=== PATIENT | female | born 1945 | race Two or more races ===

== ENCOUNTER 2018-02-23 09:48 | Inpatient (IN) | payer MEDICARE, MEDICAID ==
[~2018-02-23] VITALS: Ht 154.9 cm; Wt 91.2 kg
[2018-02-23 10:41] LABS: INR 1.1; PROTHROMBIN TIME 10.9 sec (9.4-11.6)
[2018-02-23 10:42] LABS: CHLORIDE 97 mEq/L (98-107)
[2018-02-23 10:43] LABS: BASOPHILS % 0.6 % (0.0-2.0); EOSINOPHILS % 5.9 % (0.0-5.0); HEMATOCRIT. 35.3 % (36.0-48.0); HEMOGLOBIN. 12.3 g/dL (12.0-16.0); LYMPHOCYTES % 31.2 % (20.0-50.0); MEAN CORPUSCULAR HEMOGLOBIN 33.7 pg (28.0-32.0); MEAN CORPUSCULAR VOLUME 97.1 fL (81.0-99.0); MEAN PLATELET VOLUME 9.8 fl (7.4-10.4); MONOCYTES % 7.6 % (2.0-8.0); NEUTROPHILS % 54.7 % (40.0-76.0); PLATELET 89 x1000/uL (130-400); RED BLOOD CELL COUNT 3.64 mill/uL (4.2-5.4); RED CELL DISTRIBUTION WIDTH 15.2 % (11.6-14.6)
[2018-02-23 10:45] LABS: AMMONIA 23 uMol/L (<32)
[2018-02-23 10:46] LABS: ETHANOL BLOOD < 10 mg/dL
[2018-02-23 10:50] LABS: CREATINE KINASE 217 IU/L (26-192)
[2018-02-23] MEDS ORDERED: KCL 10MEQ/50ML PREMIX 50 ML IV ONE (11:00)
[2018-02-23 11:20] LABS: KETONES URINE NEGATIVE (NEGATIVE); LEUKOCYTE ESTERASE URINE NEGATIVE (NEGATIVE); NITRITE URINE NEGATIVE (NEGATIVE); OCCULT BLOOD URINE 2+ (NEGATIVE); PH URINE 7.5 (4.5-8.0); PROTEIN URINE 3+ (NEGATIVE); SPECIFIC GRAVITY URINE 1.015 (1.005-1.030); UROBILINOGEN URINE 0.2 E.U./dL (0.2-1.0)
[2018-02-23 11:22] LABS: CLARITY URINE CLEAR (CLEAR); COLOR URINE YELLOW (YELLOW)
[2018-02-23 11:35] LABS: *AMPHETAMINES SCREEN URINE NEGATIVE (NEGATIVE); *BARBITURATES SCREEN URINE NEGATIVE (NEGATIVE); *BENZODIAZEPINES SCREEN URINE NEGATIVE (NEGATIVE); *COCAINE SCREEN URINE NEGATIVE (NEGATIVE)
[2018-02-23 11:36] LABS: CANNABINOID URINE SCREEN NEGATIVE (NEGATIVE); METHADONE URINE SCREEN NEGATIVE (NEGATIVE); OPIATES URINE SCREEN NEGATIVE (NEGATIVE); PHENCYCLIDINE URINE SCREEN NEGATIVE (NEGATIVE)
[2018-02-23] MEDS ORDERED: ONDANSETRON HCL 4MG/2ML VIAL IV PRN (13:45)
[2018-02-23] MEDS ORDERED: ACETAMINOPHEN 325MG TABLET PO PRN (13:45)
[2018-02-23] MEDS ORDERED: CLONIDINE 0.1MG TABLET PO PRN (13:45)
[2018-02-23] MEDS ORDERED: DOCUSATE SODIUM 100MG CAPSULE PO PRN (13:45)
[2018-02-23] MEDS ORDERED: LORAZEPAM 0.5MG TABLET PO PRN (13:45)
[2018-02-23] MEDS ORDERED: OXYCODONE HCL/ACETAMINOPHEN 5/325MG TABLET PO PRN (16:00)
[2018-02-23 22:00] VITALS: BP 156/65
[2018-02-23 23:00] VITALS: BP 156/65
[2018-02-23] MEDS ORDERED: LANTUSUD SUBCUT (23:27)
[2018-02-23] MEDS ORDERED: FISH1CAP63 PO (23:27)
[2018-02-23] MEDS ORDERED: CALC-3 PO (23:27)
[2018-02-23] MEDS ORDERED: TENO300T7 PO (23:27)
[2018-02-23] MEDS ORDERED: RIFA550T PO (23:27)
[2018-02-23] MEDS ORDERED: INSU100I7 SQ ×2 (23:27)
[2018-02-23] MEDS ORDERED: DEXTROSE 50% WATER 50ML SYRINGE IV PRN (23:30)
[2018-02-23] MEDS: PREGABALIN 50 MG CAPSULE PO SCH (23:41)
[2018-02-24] VITALS: BP 137/67
[2018-02-24 04:00] VITALS: BP 133/55
[2018-02-24] MEDS: BLOOD SUGAR DIAGNOSTIC STRIP TEST SCH ×4 (06:48→20:51)
[2018-02-24] MEDS: INSULIN LISPRO 100 UNITS/ML SUBCUT SCH ×4 (06:49→20:54)
[2018-02-24 06:58] LABS: CHLORIDE 108 mEq/L (98-107)
[2018-02-24 07:00] LABS: BASOPHILS % 0.6 % (0.0-2.0); EOSINOPHILS % 5.3 % (0.0-5.0); HEMATOCRIT. 35.3 % (36.0-48.0); LYMPHOCYTES % 38.2 % (20.0-50.0); MEAN CORPUSCULAR HEMOGLOBIN 33.4 pg (28.0-32.0); MEAN CORPUSCULAR VOLUME 98.2 fL (81.0-99.0); MEAN PLATELET VOLUME 10.3 fl (7.4-10.4); MONOCYTES % 9.2 % (2.0-8.0); NEUTROPHILS % 46.7 % (40.0-76.0); PLATELET 83 x1000/uL (130-400); RED CELL DISTRIBUTION WIDTH 15.4 % (11.6-14.6)
[2018-02-24 07:12] LABS: HDL CHOLESTEROL 36 mg/dL (40-59)
[2018-02-24 07:14] LABS: LDL CHOLESTEROL 105 mg/dL (5-100)
[2018-02-24 08:00] VITALS: BP 116/62
[2018-02-24] MEDS: PENTOXIFYLLINE 400MG TABLET PO SCH (08:44)
[2018-02-24] MEDS: CARVEDILOL 3.125 MG TABLET PO SCH ×2 (08:44→20:44)
[2018-02-24] MEDS: POTASSIUM CHLORIDE 20MEQ TABLET SR PO SCH (08:44)
[2018-02-24] MEDS: ASPIRIN 81MG EC TABLET PO SCH (08:45)
[2018-02-24] MEDS: FOLIC ACID/VITAMIN B COMP W-C TABLET PO SCH (08:45)
[2018-02-24] MEDS ORDERED: POTASSIUM CHLORIDE 20MEQ TABLET SR PO SCH (10:00)
[2018-02-24 12:00] VITALS: BP 107/40
[2018-02-24 16:00] VITALS: BP 121/55
[2018-02-24 19:45] VITALS: BP 124/52
[2018-02-24] MEDS: PREGABALIN 50 MG CAPSULE PO SCH (20:44)
[2018-02-25 00:17] VITALS: BP 134/55
[2018-02-25 04:00] VITALS: BP 142/76
[2018-02-25 07:07] LABS: HEMATOCRIT 33.6 % (36.0-48.0); HEMOGLOBIN 11.5 g/dL (12.0-16.0); MEAN CORPUSCULAR HEMOGLOBIN 33.9 pg (28.0-32.0); MEAN CORPUSCULAR VOLUME 99.3 fL (81.0-99.0); PLATELET 85 x1000/uL (130-400); RED BLOOD CELL COUNT 3.38 mill/uL (4.2-5.4); RED CELL DISTRIBUTION WIDTH 15.6 % (11.6-14.6)
[2018-02-25] MEDS: BLOOD SUGAR DIAGNOSTIC STRIP TEST SCH (07:09)
[2018-02-25 08:00] VITALS: BP 123/50
[2018-02-25] MEDS: CARVEDILOL 3.125 MG TABLET PO SCH (08:34)
[2018-02-25] MEDS: ASPIRIN 81MG EC TABLET PO SCH (08:34)
[2018-02-25] MEDS: PENTOXIFYLLINE 400MG TABLET PO SCH (08:34)
[2018-02-25] MEDS: FOLIC ACID/VITAMIN B COMP W-C TABLET PO SCH (08:34)
[2018-02-25] MEDS: POTASSIUM CHLORIDE 20MEQ TABLET SR PO SCH (08:34)
[2018-02-25] MEDS: INSULIN LISPRO 100 UNITS/ML SUBCUT SCH (08:35)
[2018-02-25 10:07] VITALS: BP 123/50
== END 2018-02-25 10:30 | disposition home or self-care (01) | DRG 70 ==
LOC: ER 10:28 → 7WST 12:16 → ENRESERV 19:05
PROVIDERS: ADMIT Internal Medicine; ATTEND Internal Medicine
DX: G93.40 Encephalopathy, unspecified (principal); N18.6 End stage renal disease; E11.22 Type 2 diabetes mellitus with diabetic chronic kidney disease; I12.0 Hypertensive chronic kidney disease with stage 5 chronic kidney disease or end stage renal disease; B19.10 Unspecified viral hepatitis B without hepatic coma; E87.6 Hypokalemia; I25.10 Atherosclerotic heart disease of native coronary artery without angina pectoris; Z99.2 Dependence on renal dialysis; Z88.8 Allergy status to other drugs, medicaments and biological substances; Z79.01 Long term (current) use of anticoagulants; Z79.899 Other long term (current) drug therapy
CPT/HCPCS: 36415; 70450; 71045; 80048; 80053; 80061; 80305; 81003; 82140; 82550; 82962; 83036; 83605; 83690; 83735; 84484; 85025; 85027; 85610; 93005; 97162; 99291; G0482; J1815; J3480; J7030; A4315

== ENCOUNTER 2020-03-24 09:29 | Inpatient (IN) | payer MEDICARE, MEDICAID ==
[~2020-03-24] VITALS: Ht 154.9 cm; Wt 60.3 kg
[~2020-03-24 09:29] MED LIST: CALC-3 PO; FISH1CAP63 PO; INSU100I7 SQ; LANTUSUD SUBCUT; RIFA550T PO; TENO300T7 PO
[2020-03-24 10:21] LABS: BASOPHILS % 0.2 % (0.0-2.0); EOSINOPHILS % 1.8 % (0.0-5.0); HEMATOCRIT. 31.6 % (36.0-48.0); HEMOGLOBIN. 10.7 g/dL (12.0-16.0); LYMPHOCYTES % 13.5 % (20.0-50.0); MEAN CORPUSCULAR HEMOGLOBIN 34.8 pg (28.0-32.0); MEAN CORPUSCULAR VOLUME 102.7 fL (81.0-99.0); MEAN PLATELET VOLUME 10.9 fl (7.4-10.4); MONOCYTES % 8.5 % (2.0-8.0); PLATELET 67 x1000/uL (130-400); RED BLOOD CELL COUNT 3.07 mill/uL (4.2-5.4); RED CELL DISTRIBUTION WIDTH 15.5 % (11.6-14.6)
[2020-03-24 10:27] LABS: CHLORIDE 105 mEq/L (98-107)
[2020-03-24 10:31] LABS: ETHANOL BLOOD < 10 mg/dL
[2020-03-24] MEDS ORDERED: DILTIAZEM HCL 5MG/ML 5ML VIAL IV ONE (10:45)
[2020-03-24] MEDS ORDERED: LEVOFLOXACIN 500MG PREMIX 100 ML IV ONE (11:45)
[2020-03-24 12:18] LABS: CLARITY URINE CLEAR (CLEAR); COLOR URINE YELLOW (YELLOW); KETONES URINE 2+ (NEGATIVE); LEUKOCYTE ESTERASE URINE 1+ (NEGATIVE); NITRITE URINE NEGATIVE (NEGATIVE); OCCULT BLOOD URINE 2+ (NEGATIVE); PH URINE >=9.0 (4.5-8.0); PROTEIN URINE 3+ (NEGATIVE); SPECIFIC GRAVITY URINE 1.014 (1.005-1.030); UROBILINOGEN URINE 0.2 E.U./dL (0.2-1.0)
[2020-03-24 12:38] LABS: *BARBITURATES SCREEN URINE NEGATIVE (NEGATIVE); *BENZODIAZEPINES SCREEN URINE NEGATIVE (NEGATIVE); *COCAINE SCREEN URINE NEGATIVE (NEGATIVE); CANNABINOID URINE SCREEN NEGATIVE (NEGATIVE); METHADONE URINE SCREEN NEGATIVE (NEGATIVE); OPIATES URINE SCREEN PRESUMTIVE POSITIVE (NEGATIVE); PHENCYCLIDINE URINE SCREEN NEGATIVE (NEGATIVE)
[2020-03-24 12:39] LABS: *AMPHETAMINES SCREEN URINE NEGATIVE (NEGATIVE)
[2020-03-24] MEDS ORDERED: METOCLOPRAMIDE HCL 10MG/2ML VIAL IV PRN (12:45)
[2020-03-24] MEDS ORDERED: ACETAMINOPHEN 325MG TABLET PO PRN (12:45)
[2020-03-24] MEDS ORDERED: CEFTRIAXONE 1 G PREMIX 50 ML IV NR (13:00)
[2020-03-24] MEDS ORDERED: CLONIDINE 0.1MG TABLET PO PRN (15:15)
[2020-03-25] VITALS: BP 150/76
[2020-03-25 04:00] VITALS: BP 174/58
[2020-03-25] MEDS ORDERED: DEXTROSE 50% WATER 50ML SYRINGE IV PRN (06:30)
[2020-03-25] MEDS: BLOOD SUGAR DIAGNOSTIC STRIP TEST SCH ×4 (07:46→21:22)
[2020-03-25] MEDS: INSULIN LISPRO 100 UNITS/ML SUBCUT SCH ×4 (07:47→21:23)
[2020-03-25 08:00] VITALS: BP 147/56
[2020-03-25] MEDS: AZITHROMYCIN 500 MG TABLET PO SCH (08:55)
[2020-03-25] MEDS: DOCUSATE SODIUM 250MG CAPSULE PO SCH ×2 (08:55→17:11)
[2020-03-25] MEDS ORDERED: POTASSIUM CHLORIDE 10MEQ TABLET SR PO SCH (11:15)
[2020-03-25 12:00] VITALS: BP 134/56
[2020-03-25] MEDS ORDERED: CEFTRIAXONE 1,000 MG in DEXTROSE 5% WATER 50 ML IV SCH (12:00)
[2020-03-25] MEDS: DILTIAZEM HCL 60MG TABLET PO SCH ×2 (14:57→21:22)
[2020-03-25 16:00] VITALS: BP 139/61
[2020-03-25 20:00] VITALS: BP 141/52
[2020-03-26] VITALS: BP 138/60
[2020-03-26 04:44] VITALS: BP 160/73
[2020-03-26] MEDS: DILTIAZEM HCL 60MG TABLET PO SCH ×3 (05:07→23:07)
[2020-03-26 08:00] VITALS: BP 104/59
[2020-03-26] MEDS: INSULIN LISPRO 100 UNITS/ML SUBCUT SCH ×4 (08:10→21:00)
[2020-03-26] MEDS: BLOOD SUGAR DIAGNOSTIC STRIP TEST SCH ×4 (08:23→21:24)
[2020-03-26 08:29] LABS: HEMATOCRIT. 28.1 % (36.0-48.0); HEMOGLOBIN. 9.6 g/dL (12.0-16.0); MEAN CORPUSCULAR HEMOGLOBIN 35.2 pg (28.0-32.0); MEAN CORPUSCULAR VOLUME 103.4 fL (81.0-99.0); MEAN PLATELET VOLUME 9.9 fl (7.4-10.4); PLATELET 54 x1000/uL (130-400); RED BLOOD CELL COUNT 2.72 mill/uL (4.2-5.4); RED CELL DISTRIBUTION WIDTH 15.8 % (11.6-14.6)
[2020-03-26] MEDS: CALCIUM ACETATE 667MG CAPSULE PO SCH ×3 (09:38→17:08)
[2020-03-26] MEDS: THIAMINE HCL 100MG TABLET PO SCH (09:38)
[2020-03-26] MEDS: DOCUSATE SODIUM 250MG CAPSULE PO SCH ×2 (09:39→17:08)
[2020-03-26] MEDS: AZITHROMYCIN 500 MG TABLET PO SCH (09:39)
[2020-03-26] MEDS: POTASSIUM CHLORIDE 20MEQ TABLET SR PO SCH (09:39)
[2020-03-26] MEDS: CEFTRIAXONE 1,000 MG in DEXTROSE 5% WATER 50 ML IV SCH (11:00)
[2020-03-26 12:00] VITALS: BP 108/57
[2020-03-26 15:05] LABS: PLATELET ESTIMATE DECREASED
[2020-03-26 16:00] VITALS: BP 139/56
[2020-03-27] VITALS: BP 162/60
[2020-03-27] MEDS: ZOLPIDEM TARTRATE 5MG TABLET PO PRN ×2 (00:20→22:10)
[2020-03-27 04:00] VITALS: BP 104/34
[2020-03-27] MEDS: DILTIAZEM HCL 60MG TABLET PO SCH ×3 (06:00→21:00)
[2020-03-27] MEDS: BLOOD SUGAR DIAGNOSTIC STRIP TEST SCH ×4 (06:27→20:59)
[2020-03-27 07:56] LABS: HEMATOCRIT. 28.5 % (36.0-48.0); HEMOGLOBIN. 9.3 g/dL (12.0-16.0); MEAN PLATELET VOLUME 10.9 fl (7.4-10.4); PLATELET 65 x1000/uL (130-400); RED BLOOD CELL COUNT 2.64 mill/uL (4.2-5.4); RED CELL DISTRIBUTION WIDTH 16.2 % (11.6-14.6)
[2020-03-27 08:00] VITALS: BP 133/59
[2020-03-27 08:36] LABS: VITAMIN B12 SERUM 1759 pg/mL (211-911)
[2020-03-27] MEDS: CALCIUM ACETATE 667MG CAPSULE PO SCH ×3 (08:40→18:21)
[2020-03-27] MEDS: AZITHROMYCIN 500 MG TABLET PO SCH (08:41)
[2020-03-27] MEDS: DOCUSATE SODIUM 250MG CAPSULE PO SCH ×2 (08:41→16:24)
[2020-03-27] MEDS: THIAMINE HCL 100MG TABLET PO SCH (08:41)
[2020-03-27] MEDS: INSULIN LISPRO 100 UNITS/ML SUBCUT SCH ×4 (08:45→20:59)
[2020-03-27] MEDS: POTASSIUM CHLORIDE 20MEQ TABLET SR PO SCH (09:00)
[2020-03-27 10:47] LABS: PLATELET ESTIMATE DECREASED
[2020-03-27 12:00] VITALS: BP 102/50
[2020-03-27] MEDS: CEFTRIAXONE 1,000 MG in DEXTROSE 5% WATER 50 ML IV SCH (15:06)
[2020-03-27 16:00] VITALS: BP 139/56
[2020-03-27 20:00] VITALS: BP 117/50
[2020-03-27] MEDS ORDERED: EPOETIN ALFA 4000UNITS/ML VIAL SUBCUT SCH (21:00)
[2020-03-28] VITALS: BP 126/57
[2020-03-28 04:00] VITALS: BP 116/66
[2020-03-28] MEDS: DILTIAZEM HCL 60MG TABLET PO SCH ×2 (06:01→14:37)
[2020-03-28] MEDS: BLOOD SUGAR DIAGNOSTIC STRIP TEST SCH ×2 (06:29→13:04)
[2020-03-28] MEDS: INSULIN LISPRO 100 UNITS/ML SUBCUT SCH ×2 (07:48→12:48)
[2020-03-28 08:00] VITALS: BP 126/48
[2020-03-28] MEDS: THIAMINE HCL 100MG TABLET PO SCH (08:25)
[2020-03-28] MEDS: DOCUSATE SODIUM 250MG CAPSULE PO SCH (08:25)
[2020-03-28] MEDS: POTASSIUM CHLORIDE 20MEQ TABLET SR PO SCH (08:25)
[2020-03-28] MEDS: CEFTRIAXONE 1,000 MG in DEXTROSE 5% WATER 50 ML IV SCH (08:25)
[2020-03-28] MEDS: AZITHROMYCIN 500 MG TABLET PO SCH (08:25)
[2020-03-28] MEDS: CALCIUM ACETATE 667MG CAPSULE PO SCH ×2 (08:26→12:48)
[2020-03-28] MEDS ORDERED: TENOFOVIR 300MG TABLET PO SCH (09:00)
[2020-03-28 12:00] VITALS: BP 157/60
[2020-03-28 13:33] VITALS: BP 157/62
== END 2020-03-28 15:00 | disposition home or self-care (01) | DRG 871 ==
LOC: ER 09:29 → 7WST 11:34 → EDBEDREQ 11:37 → ENRESERV 22:18 → 6WST 03-26 16:22
PROVIDERS: ADMIT Internal Medicine; ATTEND Internal Medicine
PROC: 5A1D70Z Performance of Urinary Filtration, Intermittent, Less than 6 Hours Per Day (ICD-10-PCS; 2020-03-26)
PROC: 4A00X4Z Measurement of Central Nervous Electrical Activity, External Approach (ICD-10-PCS; principal; 2020-03-28)
DX: A41.51 Sepsis due to Escherichia coli [E. coli] (principal); J96.00 Acute respiratory failure, unspecified whether with hypoxia or hypercapnia; N18.6 End stage renal disease; G93.41 Metabolic encephalopathy; J18.9 Pneumonia, unspecified organism; N39.0 Urinary tract infection, site not specified; E44.1 Mild protein-calorie malnutrition; B19.10 Unspecified viral hepatitis B without hepatic coma; I13.2 Hypertensive heart and chronic kidney disease with heart failure and with stage 5 chronic kidney disease, or end stage renal disease; E87.2 Acidosis; D69.6 Thrombocytopenia, unspecified; E11.22 Type 2 diabetes mellitus with diabetic chronic kidney disease; I48.91 Unspecified atrial fibrillation; G90.8 Other disorders of autonomic nervous system; I95.9 Hypotension, unspecified; E87.6 Hypokalemia; Z20.828 Contact with and (suspected) exposure to other viral communicable diseases; D63.1 Anemia in chronic kidney disease; I25.10 Atherosclerotic heart disease of native coronary artery without angina pectoris; I50.9 Heart failure, unspecified; Z79.4 Long term (current) use of insulin; Z91.81 History of falling; Z88.8 Allergy status to other drugs, medicaments and biological substances; Z99.2 Dependence on renal dialysis; Z79.899 Other long term (current) drug therapy; Z78.1 Physical restraint status; Z68.25 Body mass index [BMI] 25.0-25.9, adult
CPT/HCPCS: 36415; 71045; 80048; 80053; 80305; 80307; 80320; 80329; 81003; 82140; 82607; 82962; 83605; 84443; 84484; 85025; 87077; 87186; 87635; 93005; 93306; 95816; 96365; 97116; 97162; 99291; J0696; J0885; J1815; J1956; J3490; J7060; G0480